=== PATIENT | male | born 2000 | race Caucasian/White ===

== ENCOUNTER → 2022-07-01 | Outpatient (CLI) | payer MEDICAID ==
--- NOTE | 2022-07-01 17:29 | Diagnostic Imaging Report ---
EXAMINATION: Left knee radiographs, 3 views. COMPARISON: None. HISTORY: 21-year-old male, left knee pain. FINDINGS: The joint spaces are well preserved. There is no knee joint effusion. 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 There is no cortical or aggressive bone destruction. IMPRESSION: 1. Contour abnormality of the anterior aspect of the proximal tibia in the region of the anterior tibial tubercle which potentially could reflect sequela of prior injury. An osteochondroma dislocation would be a less likely differential consideration. Overall, this measures approximately 3.2 x 1.1 cm in size. 2. Well-preserved joint spaces without knee joint effusion. 3. No acute fracture or other acute bony abnormality. Dictated by: Dictated on workstation # [id number]
== END ==
LOC: RAD 15:55
PROVIDERS: ATTEND Family Medicine
DX: M25.562 Pain in left knee (principal)
CPT/HCPCS: 73562